=== PATIENT | male | born 1965 | race Caucasian/White ===

== ENCOUNTER 2024-08-09 07:56 | Outpatient (AMB) | payer MEDICAID, SELFPAY ==
[2024-08-09 08:05] VITALS: BP 158/100; PULSE 69; RESP 81; TEMP 36.3; O2SAT 97; BMI 30.8
--- NOTE | 2024-08-09 08:05 | ORTHONT_ITS ---
Vital signs 08/09/24 08:05 Height 1.8 m Height Method Stated Weight 99.96 kg Weight Measurement Method Standing Scale BMI 30.8 BP 158/100 H Blood Pressure Source Automatic Cuff Blood Pressure Location Right Upper Arm Position Sitting Respiration 81 H Pulse 69 Pulse Source Monitor Temp 97.3 F Temp Source Temporal Artery Scan Pulse Oximetry (%) 97 Oxygen Delivery Method Room Air Med/Allergies Allergies & Medications Allergies No Known Allergies Allergy (Verified 08/09/24 08:06) Medication Reconciliation aspirin 81 mg chewable tablet 81 mg PO QDAY 07/02/22 [History Confirmed 08/09/24 ] atorvastatin 80 mg tablet 80 mg PO QDAY 07/02/22 [History Confirmed 08/09/24] empagliflozin 10 mg tablet (Jardiance) 10 mg PO QAM 07/02/22 [History Confirmed 08/09/24] metoprolol succinate 25 mg capsule sprinkle, ext. release 24 hr (Kapspargo Sprinkle) 25 mg PO QDAY 07/02/22 [History Confirmed 08/09/24] clopidogrel 75 mg tablet (Plavix) 75 mg PO QDAY 07/01/23 [History Confirmed 08/09/24] furosemide 20 mg tablet 20 mg PO QDAY 07/01/23 [History Confirmed 08/09/24] Subjective Visit Visit for: follow up visit and knee (RIGHT) Immunization / Flu Flu Vaccine in the Last 12 Months: No Flu Vaccine Exclusion Criteria: Refused by Patient History of Present Illness Chief complaint: RIGHT KNEE PAIN Date of injury / onset of symptoms: AFTER SX Date of 1st surgery (if applicable): 06/2022 Ovi is a pleasant 57-year-old male who presents today status post right total knee replacement. The right knee was replaced 2 years ago. He also had a left total knee replacement 6 years ago. He reports the left knee is nonpainful. However, for his right knee, he reports pain and instability. He reports that he does not trust his knee and it frequently gives out. He also reports is difficult to walk on uneven ground. It has been painful since surgery. He reports significant swelling of his knee at the end of the day His ESR is 2 and his CRP is 3. He obtained a urine drug test but these lab results were not available right now for some reason. He discussed that he had a recent pacemaker surgery and is post to wait at least 6 months. He reports that he is too high risk for surgery. He like a cortisone injection in his right hip as he is been having right hip pain and has right hip arthritis. We will set him up for a cortisone injection in his right hip Personal History Hobbies: NA Red flag PMH: smoker and other (specify) Pain Pain level (0-10): 8 Pain duration: CONSTANT Pain location: inside (medial) Pain quality: sharp, dull and aching Pain timing: night, increases with activity and stairs Associated signs & symptoms: numbness, weakness and stiffness Ambulatory data Ambulatory device: none Walking distance (blocks): 0 (excruciating) Treatments Number of previous injections: 0 Improvement with previous injections: No Number of Physical Therapy sessions: 0 Improvement with PT: No Improvement with NSAIDS: no Review of Systems Review of Systems: All systems negative unless otherwise noted in HPI. Exam Exam Patient is in no acute distress and is cooperative with the examination today. Patient has a normal mood and affect. Breathing is nonlabored. In no respiratory distress. Bilateral extremities were evaluated and demonstrates sensation intact to light touch. Palpable pedal pulses are present. No significant edema is present. Bilateral knee incisions are clean dry intact Right knee is nontender to palpation. There is no effusion. Knee range of motion is 0 to 105 degrees. There is significant varus valgus laxity in both extension and flexion. The knee is also unstable in the AP plane Left knee is also nontender to palpation. There is mild varus valgus laxity in extension.. Knee range of motion 0 to 115 degrees Assessment and Plan Problem List (1) Instability of internal right knee prosthesis: Status: Acute Plan: Patient is a 57-year-old male with instability of a prior right total knee repla cement. It is significantly unstable and we discussed revision to a more constrained prosthesis. IHe unfortunately cannot get surgery as he is too high risk because of his multiple heart attacks. We will start with a right hip cortisone injection as he cannot get surgery. (2) Instability of knee joint: Status: Acute Office Procedures GNS Level of Care Nursing/Assessment Patient Status: Established Patient Nursing Assessment/Reassesment: Medication Reconciliation, Update PMH in EMR and Vital Signs Coordination of Care: Complex Care and Chronic Disease 1-5, Education Complex Pt/Fam, Consent,records obtained, informed consent, 1 Ins Authorization, Results/Orders obtained and Staff clarify orders Established Patient Charge Established Patient Point Assignment: 110 Established Patient Point Charge: EP Level 3 (80-115) Past Medical History Past Medical History Have you ever been diagnosed with any of the following: Neurological Problems Seizures: No Cardiology Problems Myocardial Infarction: Yes Hypercholesterolemia: Yes (TAKES MED) Congestive Heart Failure: Yes Hypertension: Yes (TAKES MED) Respiratory Problems Chronic Obstructive Pulmonary Disease (COPD): No Tuberculosis: No Sleep Apnea: No Smoking: Yes (MARIJUANA) Smoking Exposure: Yes Stomache/Intestinal Problems Hepatitis: No Genital/Urinary Problems Renal Disease: No Inguinal Hernia: Yes (April 2021) Musculoskeletal Problems Arthritis: Yes Fractures: Yes (osteotomy 1993, left foot fx) Endocrine Problems Diabetes Mellitus Type 1: No Diabetes Mellitus Type 2: No Other Problems Hospitalization: Yes ([facility] [place]) Shingles: No Falls: No Blood Transfusions: No Blood Transfusion Reaction: No Anesthesia Reactions: No Chemotherapy: No Radiation Therapy: No MRSA: No VRSA: No Chicken Pox: Yes Measles: No Mumps: No Cancer: No
== END 2024-08-09 08:26 | disposition home or self-care (01) ==
LOC: HODSRG 07:56
PROVIDERS: PCP Emergency Medicine; Referring Provider Emergency Medicine; Supervising Provider Orthopaedic Surgery Adult Reconstructive Orthopaedic Surgery; Visit Provider Orthopaedic Surgery Adult Reconstructive Orthopaedic Surgery
DX: T84.022A Instability of internal right knee prosthesis, initial encounter (principal); Y84.9 Medical procedure, unspecified as the cause of abnormal reaction of the patient, or of later complication, without mention of misadventure at the time of the procedure; Z96.653 Presence of artificial knee joint, bilateral; M16.11 Unilateral primary osteoarthritis, right hip; I11.0 Hypertensive heart disease with heart failure; I50.9 Heart failure, unspecified; E78.00 Pure hypercholesterolemia, unspecified; I25.2 Old myocardial infarction
CPT/HCPCS: 99213; G0463

== ENCOUNTER → 2024-08-22 | Outpatient (CLI) | payer SELFPAY ==
--- NOTE | 2024-08-22 13:00 | XR_ITS ---
Examination: Steroid injection right hip joint with imaging guidance Fluoroscopy AP right hip single view INDICATIONS: Right hip pain months. Exam date and time: August 22, 2024 1307 hours Informed consent provided. Technique: A timeout was completed verifying correct patient, procedure, site, positioning. The patient was placed in supine position appropriate for the steroid injection The patient's site was prepped and draped in sterile fashion 5 cc 1% lidocaine administered locally for anesthesia. Sterile drape applied, maximum barrier sterile technique. Utilizing fluoroscopic guidance, 23-gauge needle placed in the right hip joint 1 cc Kenalog 40 in 5 cc 0.25% Marcaine introduced into the right hip joint The patient was in satisfactory and stable condition on completion of the procedure Attending radiologist was present for the entire procedure Estimated blood loss 0 cc. Impression: Successful steroid injection right hip joint with imaging guidance Fluoroscopy 0.1 minute radiation dose 2.69 milligray 1 spot fluoroscopic films .
== END | disposition home or self-care (01) ==
LOC: SIRX 13:22
PROVIDERS: PCP Emergency Medicine; Referring Provider Orthopaedic Surgery Adult Reconstructive Orthopaedic Surgery; Visit Provider Orthopaedic Surgery Adult Reconstructive Orthopaedic Surgery
DX: M16.11 Unilateral primary osteoarthritis, right hip (principal)
CPT/HCPCS: 20610; 77002

== ENCOUNTER → 2025-05-16 | Outpatient (CLI) | payer MEDICAID, SELFPAY ==
--- NOTE | 2025-05-16 07:15 | XR_ITS ---
Examination: Transrectal prostate sonography TECHNIQUE: Transrectal sonographic images prostate Date and time: May 16, 2025, 0715 hours INDICATIONS: Elevated PSA on laboratory examination performed 3 weeks ago. FINDINGS: Prostate 5.4 x 4.6 x 6.8 cm volume 87 cc Vascular prostate nodule left aspect of the prostate 3.4 x 2.7 x 2.5 cm IMPRESSION: Significant prostatomegaly Vascular prostate nodule 3.4 x 2.7 x 2.5 cm as above
== END | disposition home or self-care (01) ==
LOC: CDIM 06:45
PROVIDERS: PCP Emergency Medicine; Referring Provider Emergency Medicine; Visit Provider Emergency Medicine
DX: N40.2 Nodular prostate without lower urinary tract symptoms (principal)
CPT/HCPCS: 76872

== ENCOUNTER 2025-05-30 11:35 | Emergency (ER) | payer MEDICAID, SELFPAY ==
[2025-05-30 11:35] VITALS: BMI 30.2
[2025-05-30 11:48] VITALS: BP 153/94; PULSE 78; RESP 17; TEMP 36.6; O2SAT 95
--- NOTE | 2025-05-30 11:56 | XR_ITS ---
Examination: CT abdomen and pelvis without contrast. Coronal 3-D reconstructions. Sagittal 2-D reconstructions. Date and time of exam:May 30, 2025 1255 hours INDICATIONS: Lower left groin pain beginning today. CTDI: vol (mGy): 9.38 DLP: (mGycm): 610 Technique: Axial images of the abdomen have been obtained, 3 mm slice thickness Intravenous contrast material has not been administered. Low dose protocols were performed. One or more of the following dose reduction techniques were used; automated exposure control, adjustment of the mA and/or KV according to patient size, use of iterative reconstruction technique. Findings: No focal liver or splenic lesions Suspicious for tiny gallstones axial image 83 No pancreatic or adrenal mass. No renal or ureteral calculi, no hydronephrosis No bowel obstruction. Normal appendix No diverticulitis Normal seminal vesicles Transverse prostate dimension 7.4 cm Contracted urinary bladder Left inguinal hernia containing sigmoid colon but no incarcerated bowel or bowel obstruction Fat-containing right inguinal hernia Advanced degenerative disc disease upper 4 lumbar levels Moderate narrowing hip joints IMPRESSION: Recommend hepatobiliary sonography to confirm small gallstones Left inguinal hernia containing colon but no incarcerated bowel or bowel obstruction
--- NOTE | 2025-05-30 11:57 | PD.EDRME ---
Rapid Medical Screening Exam RME Arrival date/time: 05/30/25 11:35 59-year-old male presents to the emergency room today for complaints of left inguinal pain Chief Complaint: Abdominal Pain Time Seen by Provider: 05/30/25 11:54 Vital signs: Vital Signs Temperature 97.8 F 05/30/25 11:48 Pulse Rate 78 05/30/25 11:48 Respiratory Rate 17 05/30/25 11:48 Blood Pressure 153/94 H 05/30/25 11:48 Pulse Oximetry (%) 95 05/30/25 11:48 Oxygen Delivery Method Room Air 05/30/25 11:48
[2025-05-30] MEDS: HYDROcodone/APAP 5/325 TABLET 1 TAB PO (12:07)
[2025-05-30] MEDS: KETOROLAC INJ 30 MG/ML VIAL IM (12:08)
[2025-05-30 12:24] LABS: Collection Type, Urine Clean Catch
[2025-05-30 12:32] LABS: Basophils # (Auto) 0.1 Thou/mm3 (0.0-0.2); Basophils % (Auto) 1 % (0-2.5); Eosinophils # (Auto) 0.1 Thou/mm3 (0.0-0.5); Eosinophils % (Auto) 1 % (0-10); Hematocrit 46.0 % (41.0-53.0); Hemoglobin 15.8 g/dL (13.5-16.0); Immature Granulocytes Auto 0.05 Thou/mm3 (0.00-0.00); Lymphocytes # (Auto) 1.6 Thou/mm3 (1.0-4.8); Lymphocytes % (Auto) 14 % (10-50); Mean Corpuscular HGB Conc 34.3 g/dl (31.0-37.0); Mean Corpuscular Hemoglobin 29.3 pg (25.0-35.0); Mean Corpuscular Volume 85 fL (80-100); Monocytes # (Auto) 0.9 Thou/mm3 (0.0-0.8); Monocytes % (Auto) 8 % (0-12); Neutrophils # (Auto) 8.5 Thou/mm3 (1.8-7.7); Neutrophils % (Auto) 76 % (37-80); Nucleated Red Blood Cell # 0.00 Thou/mm3 (0.00-0.00); Nucleated Red Blood Cell % 0 /100 WBC (0); Platelet Count 196 Thou/mm3 (140-440); RDW Standard Deviation 42.4 fL (35.1-43.9); Red Blood Count 5.40 Miln/mm3 (4.50-5.90); White Blood Count 11.2 Thou/mm3 (3.8-10.6)
[2025-05-30 12:54] LABS: Alanine Aminotransferase 20 U/L (10-49); Albumin, Serum 4.8 gm/dL (3.4-4.8); Albumin/Globulin Ratio 2.3 (1.2-2.2); Alkaline Phosphatase 152 U/L (46-116); Anion Gap 10 (7-16); Aspartate Amino Transferase 24 U/L (0-34); BUN/Creatinine Ratio 11 Ratio (12-20); Bilirubin,Total 0.6 mg/dL (0.3-1.2); Blood Urea Nitrogen 10 mg/dL (9-23); Calcium 9.9 mg/dL (8.3-10.6); Calcium (Corrected) 9.9 mg/dL (8.5-10.1); Carbon Dioxide 25.0 mMol/L (20.0-31.0); Chloride 107 mMol/L (98-107); Creatinine (Component) 0.9 mg/dL (0.6-1.3); Estimated Creatinine Clearance 103.1 mL/min (>60); Globulin 2.1 gm/dL (2.3-3.5); Glucose 114 mg/dL (74-106); Osmolality,Calculated 283 (275-295); Potassium 3.9 mMol/L (3.4-5.1); Sodium 142 mMol/L (136-145); Total Protein 6.9 gm/dL (5.7-8.2); eGFR > 60 See Note
[2025-05-30 12:56] LABS: Bilirubin,Urine Negative (Negative); Blood,Urine Negative (Negative); Clarity,Urine Clear (Clear/Hazy); Color,Urine Yellow (Lt Yel-Yel); Culture Indicated,Urine Not Indicated; Glucose, Urine 4+ (Negative); Ketones,Urine Trace (Negative); Leukocyte Esterase,Urine Positive (Negative); Nitrite,Urine Negative (Negative); PH,Urine 6.0 (5.0-7.0); Protein,Urine 1+ (Neg - Trace); RBC,Urine 3 /hpf (0-3); Specific Gravity,Urine 1.045 (1.001-1.035); Squamous Epithelial Cell,Urine < 1 /hpf (0-5); Urobilinogen,Urine 2.0 mg/dL (0.0-1.0); WBC,Urine 8 /hpf (0-5)
--- NOTE | 2025-05-30 13:42 | EDNOTE_ITS ---
ED Abdominal Pain RME/HPI General Chief Complaint: Abdominal Pain Stated complaint: HERNIA IS HURTING X1 DAY Time seen by provider: 05/30/25 11:54 Arrival date/time: 05/30/25 11:35 59-year-old male presents to the emergency room today for complaints of left inguinal pain Limitations: no limitations RME / HPI RME / HPI narrative: 05/30/25 11:35 59-year-old male presents to the emergency room today for complaints of left inguinal pain Related Data Home Medications ?Medication ?Instructions ?Recorded ?Confirmed aspirin 81 mg chewable tablet 81 mg PO QDAY 07/02/22 1 10/09/23 atorvastatin 80 mg tablet 80 mg PO QDAY 07/02/2208/09 empagliflozin 10 mg tablet 10 mg PO QAM 07/02/2208/09 (Jardiance) metoprolol succinate 25 mg capsule 25 mg PO QDAY 07/0208/09/24 sprinkle, ext. release 24 hr (Kapspargo Sprinkle) clopidogrel 75 mg tablet (Plavix) 75 mg PO QDAY 08/09/24 furosemide 20 mg tablet 20 mg PO QDAY 07/01/2308/09 Previous Rx's ?Medication ?Instructions ?Recorded hydrocodone 5 mg-acetaminophen 325 1 tab PO BID PRN pa in #10 tabs 05/30/25 mg tablet Allergies Allergy/AdvReac Type Severity Reaction Status Date / Time No Known Allergies Allergy Verified 05/30/25 11:39 Review of Systems Review of Systems Systems Reviewed: All systems reviewed, normal except as documented Constitutional Constitutional: Reports system reviewed and no additional complaints, except as documented, Denies fever(s) and Denies headache(s) Eyes Eyes: Reports system reviewed and no additional complaints, except as documented and Denies blurry vision ENT Ears, Nose, Mouth, and Throat: Reports system reviewed and no additional complaints, except as documented, Denies headache(s), Denies nasal congestion and Denies nasal discharge Cardiovascular Cardiovascular: Reports system reviewed and no additional complaints, except as documented, Denies chest pain and Denies dyspnea Respiratory Respiratory: Reports system reviewed and no additional complaints, except as documented, Denies chest congestion, Denies cough and Denies dyspnea Gastrointestinal Gastrointestinal: Reports system reviewed and no additional complaints, except as documented and Reports abdominal pain (Pelvic pain) Integumentary/Breasts Skin/Breast: Reports system reviewed and no additional complaints, except as documented and Denies rash Neurologic Neurologic: Reports system reviewed and no additional complaints, except as documented, Reports as per HPI and Denies headache(s) Past Medical History Past Medical History NEUROLOGIC: Negative Neurological Disorders or Seizures CARDIAC: Positive Cardiac Disorders, Myocardial Infarction, Hypercholesterolemia (TAKES MED), Congestive Heart Failure and Hypertension (TAKES MED) RESPIRATORY: Positive Smoking (MARIJUANA) and Smoking Exposure; Negative Chronic Obstructive Pulmonary Disease (COPD), Tuberculosis or Sleep Apnea GASTROINTESTINAL: Negative Gastrointestinal Disorders or Hepatitis GENITOURINARY: Positive Genitourinary Disorders and Inguinal Hernia (April 2021); Negative Renal Disease MUSCULOSKELETAL: Positive Musculoskeletal Disorders, Arthritis and Fractures (osteotomy 1993, left foot fx) ENDOCRINE: Negative Endocrine Disorders, Diabetes Mellitus Type 1 or Diabetes Mellitus Type 2 HEMATOLOGIC: Negative Blood Disorders OTHER HISTORY: Positive Hospitalization ([facility] [place]) and Chicken Pox; Negative Autoimmune Disease, Shingles, Falls, Blood Transfusions, Blood Transfusion Reaction, Anesthesia Reactions, Chemotherapy, Radiation Therapy, MRSA, VRSA, Measles, Mumps or Cancer Family History FAMILY HISTORY: Positive Family Cardiac Disorders (mother (htn)), Family Gastrointestinal Problems (brother (liver) and Family Surgery (MOTHER); Negative Family Psychiatric Problems, Family Respiratory Disorders, Family Cancer or Family Anesthesia Reaction Surgical History SURGICAL: Positive Cardiac Surgery, Coronary Stent (X1), Angiogram, Abdominal Surgery, Joint Replacement (LEFT KNEE) and Arthroscopy (LEFT KNEE X5) Social History SMOKING STATUS: Never smoker ED Exam General Limitations: Present no limitations General appearance: Present alert and in no apparent distress Head Head exam: Present atraumatic Eye Eye exam: Present normal appearance, PERRL and EOMI ENT ENT exam: Present normal exam, normal oropharynx and mucous membranes moist Neck Neck exam: Present normal inspection, full ROM and trachea midline Chest Chest inspection: Present normal inspection and symmetric chest wall rise Respiratory Respiratory exam: Present normal lung sounds bilaterally Cardiovascular Cardiovascular exam: Present regular rate, normal rhythm and normal heart sounds Abdominal Exam Abdominal exam: Present soft, tenderness and normal bowel sounds; Absent distention, guarding, rebound or rigidity Extremities Exam Extremities exam: Present normal inspection and full ROM Back Exam Back exam: Present normal inspection and full ROM Neurological Exam Neurological exam: Present alert, oriented X3 and CN II-XII intact Psychiatric Psychiatric exam: Present normal affect and normal mood Skin Skin exam: Present warm, dry, intact and normal color Course Quality Measures none Orders Category Date Time Status CT abdomen pelvis wo con Stat Exams 05/30/25 11:56 Completed CBC Stat Lab 05/30/25 12:13 Completed Comprehensive Metabolic Panel Stat Lab 05/30/25 12:13 Completed Lipase Stat Lab 05/30/25 12:13 Completed UA, C/S IF [Urinalysis, C/S if Indicated] Stat Lab 05/30/25 12:00 Completed HYDROcodone*/APAP 5/325 [[place] 5/325] Med 05/30/25 11:56 Discontinued 1 tab PO X1 ONE Ketorolac Inj [Toradol Inj] Med 05/30/25 11:56 Discontinued 30 mg IM X1 ONE Vital Signs Vital signs: Vital Signs Temperature 97.8 F 05/30/25 11:48 Pulse Rate 78 05/30/25 11:48 Respiratory Rate 17 05/30/25 11:48 Blood Pressure 153/94 H 05/30/25 11:48 Pulse Oximetry (%) 95 05/30/25 11:48 Oxygen Delivery Method Room Air 05/30/25 11:48 o2 sat 95% r.a wnl Abdominal Pain MDM MDM Narrative MDM Narrative:: 59-year-old male presents to the emergency room today for complaints of left inguinal pain On exam patient well-appearing patient does not appear ill or toxic no acute distress On exam patient does have an inguinal hernia does not appear to be incarcerated on exam Lab work and imaging obtained lab work unremarkable imaging consistent with hernia Patient discharged home in no distress to follow-up with primary care doctor in the next 24 to 48 hours and for any worsening symptoms to return to the ER immediately Patient data External records reviewed:: [facility] previous records Clinical information provided by:: patient Social determinants that could affect healthcare access:: none Patient has the following chronic illnesses:: None How is presenting disease/condition affected by chronic disease/condition?: no chronic disease Evaluation data The following diagnostics were reviewed and interpreted by me:: lab results and radiology exam(s) Lab and/or radiology exams considered but not ordered:: Labs radiology obtained Interpretation Summary: Reviewed by me Medications / Prescriptions Medications or Prescriptions considered but not ordered:: Given Medication administrations:: Medication Administration History Discontinued Medications Hydrocodone Bitart/Acetaminophen (Hydrocodone/Apap 5/325 Tablet) 1 tab PO X1 ONE Stop: 05/30/25 11:57 Last Admin: 05/30/25 12:07 Dose: 1 tab Documented By: Ketorolac Tromethamine (Ketorolac Inj 30 Mg/Ml Vial) 30 mg IM X1 ONE Stop: 05/30/25 11:57 Last Admin: 05/30/25 12:08 Dose: 30 mg Documented By: Given Consultations Consultation(s) initiated? (list below): No Diagnosis Differential diagnosis abdominal pain: abdominal pain, acute appendicitis and pancreatitis Most likely diagnosis given after review of the tests above:: Pelvic pain Admission Indicated Admission indicated?: not indicated Admission Request Was there a request for admission?: No Disposition Plan Disposition Plan: Discharge Discharge Attestation Discharge Attestation: The patient and all family members were given an opportunity to ask questions and understood the discharge instructions. Discharge instructions specifically effects, indications for sooner follow up or return to the emergency department, and the expected course of current diagnosis. Patient condition: Stable Discharge Plan Plan Patient Disposition: HOME (Self Care) Discharge Disposition comment: Stable Prescriptions/Referrals Prescriptions/Med Rec: New hydrocodone-acetaminophen 5-325 mg tablet 1 tab PO BID MDD 10 PRN (Reason: pain) Qty: 10 0RF No Action furosemide 20 mg tablet 20 mg PO QDAY clopidogrel [Plavix] 75 mg tablet 75 mg PO QDAY Jardiance 10 mg Tablet 10 mg PO QAM Kapspargo Sprinkle 25 mg capsule,sprinkle,ER 24hr 25 mg PO QDAY Patient Comments: TAKE 1 CAPSULE BY MOUTH EVERY DAY atorvastatin 80 mg tablet 80 mg PO QDAY Patient Comments: TAKE 1 TABLET BY MOUTH DAILY aspirin 81 mg tablet,chewable 81 mg PO QDAY Patient Comments: CHEW AND SWALLOW 1 TABLET BY MOUTH EVERY MORNING Referrals: Oswaldo Vazquez MD [Primary Care Provider] - 05/31/25 Problem List Clinical Impression: Inguinal hernia Patient/Caregiver Discharge Instructions Education Materials: ED Hernia (Adult) Additional Instructions: Please follow up with your primary care doctor in the next 24-48hrs for any worsening symptoms return here immediately Print Language: Estonian Stand Alone Forms: Aruna Award Info., Patient Portal Info Letter PA/JAVA DEVELOPER WITH SECURITY CLEARANCE Supervising Physician PA/JAVA DEVELOPER WITH SECURITY CLEARANCE Supervising Physician: Dr. garvin
== END 2025-05-30 14:44 | disposition home or self-care (01) ==
PROVIDERS: Nurse Practitioner Primary Care; Emergency Provider Family Medicine; PCP Emergency Medicine
DX: K40.90 Unilateral inguinal hernia, without obstruction or gangrene, not specified as recurrent (principal)
CPT/HCPCS: 36415; 74176; 80053; 81001; 83690; 85025; 96372; 99283; J1885; A9270

== ENCOUNTER 2025-06-20 08:20 | Day surgery (SDC) | payer MEDICAID, SELFPAY ==
--- NOTE | 2025-06-19 06:00 | EKG_ITS ---
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
[2025-06-19 07:16] VITALS: BMI 30.8
[2025-06-19 08:56] LABS: Basophils # (Auto) 0.1 Thou/mm3 (0.0-0.2); Basophils % (Auto) 1 % (0-2.5); Eosinophils # (Auto) 0.3 Thou/mm3 (0.0-0.5); Eosinophils % (Auto) 3 % (0-10); Hematocrit 47.3 % (41.0-53.0); Hemoglobin 15.8 g/dL (13.5-16.0); Immature Granulocytes Auto 0.03 Thou/mm3 (0.00-0.00); Lymphocytes # (Auto) 1.7 Thou/mm3 (1.0-4.8); Lymphocytes % (Auto) 17 % (10-50); Mean Corpuscular HGB Conc 33.4 g/dl (31.0-37.0); Mean Corpuscular Hemoglobin 28.9 pg (25.0-35.0); Mean Corpuscular Volume 87 fL (80-100); Monocytes # (Auto) 0.8 Thou/mm3 (0.0-0.8); Monocytes % (Auto) 8 % (0-12); Neutrophils # (Auto) 6.8 Thou/mm3 (1.8-7.7); Neutrophils % (Auto) 71 % (37-80); Nucleated Red Blood Cell # 0.00 Thou/mm3 (0.00-0.00); Nucleated Red Blood Cell % 0 /100 WBC (0); Platelet Count 188 Thou/mm3 (140-440); RDW Standard Deviation 42.0 fL (35.1-43.9); Red Blood Count 5.46 Miln/mm3 (4.50-5.90); White Blood Count 9.6 Thou/mm3 (3.8-10.6)
[2025-06-19 09:03] LABS: INR 1.0 (0.9-1.3); Prothrombin Time 10.9 Seconds (9.0-12.2)
[2025-06-19 09:09] LABS: Alanine Aminotransferase 25 U/L (10-49); Albumin, Serum 4.5 gm/dL (3.4-4.8); Albumin/Globulin Ratio 2.1 (1.2-2.2); Alkaline Phosphatase 135 U/L (46-116); Anion Gap 6 (7-16); Aspartate Amino Transferase 26 U/L (0-34); BUN/Creatinine Ratio 8 Ratio (12-20); Bilirubin,Total 0.7 mg/dL (0.3-1.2); Blood Urea Nitrogen 8 mg/dL (9-23); Calcium 9.9 mg/dL (8.3-10.6); Calcium (Corrected) 9.9 mg/dL (8.5-10.1); Carbon Dioxide 27.8 mMol/L (20.0-31.0); Chloride 106 mMol/L (98-107); Creatinine (Component) 1.0 mg/dL (0.6-1.3); Estimated Creatinine Clearance 88.1 mL/min (>60); Globulin 2.1 gm/dL (2.3-3.5); Glucose 88 mg/dL (74-106); Osmolality,Calculated 276 (275-295); Potassium 3.9 mMol/L (3.4-5.1); Sodium 140 mMol/L (136-145); Total Protein 6.6 gm/dL (5.7-8.2); eGFR > 60 See Note
--- NOTE | 2025-06-19 14:43 | SUR.PREOP ---
Cardiac records reviewed with Dr Rios.
--- NOTE | 2025-06-19 14:45 | SUR.PREOP ---
Pt notified to come in at 0830 tomorrow for surgery.
[2025-06-20] VITALS (8 sets, daily range): BP systolic 110–148; BP diastolic 76–97; PULSE 61–69; RESP 12–20; TEMP 36.5–36.6; O2SAT 95–99; BMI 30.6
--- NOTE | 2025-06-20 11:06 | PD.SUROPNT ---
Date of Procedure 06/20/25 Pre Op Diagnosis Recurrent left inguinal hernia Post Op Diagnosis Recurrent direct left inguinal hernia Procedure Repair of recurrent left inguinal hernia with mesh Findings Recurrent direct left inguinal hernia Procedure Description Patient brought into the operating room in supine position. After administration of general endotracheal anesthesia, patient's left groin was shaved, prepped and draped in standard surgical manner. The left inguinal crease was anesthetized with half percent Marcaine. An approximately 6 cm incision was made and dissection was carried to subcutaneous tissue. The Mel's fascia was divided and the external oblique aponeurosis was opened towards the external ring. Patient was noted to have a previously placed mesh that was secured with appeared to be Prolene sutures. Part of the mesh that was incorporated with the sac was removed and sent the specimen. The hernia sac and the spermatic cord structures were from the posterior aspect of the external oblique aponeurosis at the level of pubic tubercle. The hernia sac was then meticulously dissected off the spermatic cord structures at the level of internal ring. Patient was noted to have direct recurrent left inguinal hernia. The defect was closed with interrupted [id number] sutures using 0 Vicryl. The floor of inguinal canal was then reconstructed with ultra Pro proceed mesh. The mesh was secured with running 2-0 Prolene suture. The mesh secured medially to the pubic tubercle, superiorly into the conjoin tendon, inferiorly and to the shelving edge of inguinal ligament, the mesh was placed around the cord structures and tacked under the external oblique aponeurosis laterally. The area was copiously and thoroughly washed and irrigated, all the fluids were suctioned and the suction fluid returned clear. Hemostasis was adequate and satisfactory. External oblique aponeurosis was closed with running 2-0 Vicryl suture, and Mel's fascia was closed with interrupted suture using 3-0 Vicryl. The incision was closed with 4-0 Monocryl in subcutaneous fashion. Instruments, needles and sponge counts were reported to be correct ?2. Patient tolerated the procedure well. He was extubated, breathing spontaneously and without difficulty and was transferred to postanesthesia care in stable condition. Anesthesia GETA and local Pathology / specimen Other (Old mesh and part of hernia sac) Estimated Blood Loss 20 Condition Stable Disposition PACU Surgeon Candace Martinez MD Surgical Staff Operation Date: 06/20/25 10:45 Case Staff Anesthesiologist: Yoni Velarde RN First Assistant: Nadine Peña
--- NOTE | 2025-06-20 11:18 | SUR.PHASEI ---
pt arrived to PACU via gurney with oral airway present, breathing unlabored, dressing to left inguinal region clean, dry, and intact, small areas or reddened irritation around the surgical area- no bleeding noted, report from Silvio DAVE and Dr Velarde
--- NOTE | 2025-06-20 11:30 | SUR.PHASEI ---
report to Tien DAVE
--- NOTE | 2025-06-20 11:32 | SUR.PHASEI ---
report received from Marialuisa Lee RN. pt awake and alert, breathing unlabored on room air. v/s stable. pt dressing to abd cdi.
--- NOTE | 2025-06-20 11:36 | SUR.PHASEI ---
pt able to tolerate oral fluids without difficulty swallowing or nausea/vomiting.
[2025-06-20] MEDS: fentaNYL CIT INJ 50 mCg/ML AMP 2ML 25 MCG IVP ×2 (11:44→12:26)
--- NOTE | 2025-06-20 12:42 | SUR.PHASEII ---
pt awake and alert, breathing unlabored on room air. v/s stable. pt dressing to abd cdi, abd binder place. pt able to ambulate to wheelchair with steady gait. d/c instructions given with s/o Marialuisa in room, all questions answered. pt d/c via wheelchair with all belongings.
== END 2025-06-20 12:42 | disposition home or self-care (01) ==
PROVIDERS: Anesthesiology; PCP Emergency Medicine; Referring Provider Surgery; Visit Provider Surgery
PROC: (CPT 49520; principal; 2025-06-20 10:30)
DX: K40.91 Unilateral inguinal hernia, without obstruction or gangrene, recurrent (principal); Z01.810 Encounter for preprocedural cardiovascular examination; I25.10 Atherosclerotic heart disease of native coronary artery without angina pectoris; E11.9 Type 2 diabetes mellitus without complications; K21.9 Gastro-esophageal reflux disease without esophagitis; E78.00 Pure hypercholesterolemia, unspecified; Z95.5 Presence of coronary angioplasty implant and graft; Z95.0 Presence of cardiac pacemaker; Z79.899 Other long term (current) drug therapy; Z79.02 Long term (current) use of antithrombotics/antiplatelets; Z79.82 Long term (current) use of aspirin
CPT/HCPCS: 49520; 36415; 80053; 85025; 85610; 93005; A4217; A4649; C1781; J0131; J0690; J1100; J2250; J2371; J2405; J2704; J3010; J3490